=== PATIENT | female | born 1965 | race Asian ===

== ENCOUNTER 2021-06-03 19:26 | Emergency (ER) | payer BC ==
[~2021-06-03] VITALS: Ht 157.5 cm; Wt 54.4 kg
[2021-06-03] MEDS ORDERED: BACTRIM DS TAB1 EAC1 PO (22:44)
[2021-06-03] MEDS ORDERED: MUPIROCIN1 GM TOP (22:44)
[2021-06-03 23:22] VITALS: BP 121/73
== END 2021-06-03 23:20 | disposition home or self-care (01) ==
LOC: ER 19:26
DX: S81.811D Laceration without foreign body, right lower leg, subsequent encounter (principal); T78.40XD Allergy, unspecified, subsequent encounter; Z79.2 Long term (current) use of antibiotics; X58.XXXD Exposure to other specified factors, subsequent encounter